=== PATIENT | female | born 1945 | race Caucasian/White ===

== ENCOUNTER 2022-05-13 23:09 | Emergency (ER) | payer BC ==
[~2022-05-13] VITALS: Ht 139.7 cm; Wt 55.3 kg
--- NOTE | 2022-05-13 23:44 | NUR ---
[id number] FROM HOME C/O TRIPPING AND FALLING. PAIN ON LEFT FOOT PAIN IN RIGHT KNEE, RIGHT KNEE LAC/SKIN TEAR, -KO, +BLOOD THINNER. PATIENT ALERT AND ORIENTED X3. AMBULATORY BUT BROUGHT IN BY STRETCHER. IN BED 16 AWAITING MD HAYS.
--- NOTE | 2022-05-14 00:03 | NUR ---
EMT AT PT'S BEDSIDE FOR WOUND CARE
[2022-05-14] MEDS ORDERED: GELATIN SPONGE,ABSORBABLE 1 SPONGE SPONGE TP ONE ×2 (01:55→04:13)
--- NOTE | 2022-05-14 01:56 | NUR ---
VERBAL ORDER FROM DR. KYLE ANDRE FOR GEL FOAMX2 FOR WOUND CARE. EMT AT PT'S BEDSIDE FOR WOUND CARE TO SKINTEAR ON R KNEE.
[2022-05-14] MEDS ORDERED: TRANEXAMIC ACID 1,000 MG/10 ML VIAL ONE (04:17)
--- NOTE | 2022-05-14 04:25 | NUR ---
APPLIED TRANEXEMIC ACIDE & DRESSING TO R KNEE SKIN TEAR. WILL REASSESS FOR BLEEDING.
[2022-05-14] MEDS ORDERED: TRANEXAMIC ACID 1,000 MG/10 ML VIAL IR ONE (04:30)
--- NOTE | 2022-05-14 06:27 | NUR ---
PT WILL BE TRANSPORTED BACK HOME [facility]IA [facility] IN ONE HOUR AND A HALF.
--- NOTE | 2022-05-14 06:44 | NUR ---
Written and verbal after care instructions given. Patient verbalizes understanding of instruction and signed DC paperwork. Awaiting for [facility] for DC
--- NOTE | 2022-05-14 07:32 | NUR ---
TRASNPORTATION ARRIVED, REPORT GIVEN, PT TRANFERRED BACK HOME IN STABLE CONDITION.
[2022-05-14 09:03] VITALS: BP 123/66
== END 2022-05-14 09:03 | disposition home or self-care (01) ==
LOC: ER 23:14
DX: S80.01XA Contusion of right knee, initial encounter (principal); S90.32XA Contusion of left foot, initial encounter; I10 Essential (primary) hypertension; Z79.01 Long term (current) use of anticoagulants; Z88.0 Allergy status to penicillin; W01.0XXA Fall on same level from slipping, tripping and stumbling without subsequent striking against object, initial encounter; Y93.89 Activity, other specified; Y92.89 Other specified places as the place of occurrence of the external cause; Y99.8 Other external cause status
CPT/HCPCS: 99284; 70450; 73630; 73564; A6403 ×2